=== PATIENT | female | born 1970 | race Caucasian/White ===

== ENCOUNTER 2018-07-25 06:00 | Day surgery (SDC) | payer OTHER ==
[~2018-07-25 06:00] MED LIST: FAMOTIDINE 20MG TABLET PO ONE; MECLIZINE 25 MG TABLET PO ONE; METOCLOPRAMIDE 10 MG TABLET PO ONE
[2018-07-25] MEDS ORDERED: RINGERS SOLUTION,LACTATED 100 ML IV ONE (08:30)
--- NOTE | 2018-07-25 19:18 | Operative Note ---
DATE OF SERVICE: 07/25/2018 PREOPERATIVE DIAGNOSES: 1. HEAVY MENSTRUAL BLEEDING. 2. UTERINE FIBROIDS. 3. PROLONGED BLEEDING. POSTOPERATIVE DIAGNOSES: 1. HEAVY MENSTRUAL BLEEDING. 2. UTERINE FIBROIDS. 3. PROLONGED BLEEDING. 4. STENOTIC CERVIX. PHYSICIAN: MONICA HESS D.O. ANESTHESIA: GENERAL. COMPLICATIONS: NONE. ESTIMATED BLOOD LOSS: MINIMAL. HISTORY: This is a 48-year-old female, who was having periods monthly until the fall of last year. She then went 54 days without a period. She then started a period and that one lasted 23 days. She continues to have prolonged bleeding. She does have a history of and bowel resection. She had an ultrasound , which showed a 4 cm fibroid. Because of her previous surgery, we opted to do a D&C ablation. However, the cervix was noted to be stenotic. I could not pass anything through the cervix. It was difficult with the angle of the cervix, most likely due to the fibroid. PROCEDURE: The patient was prepped for surgery. She was brought back to the Operative Suite. She was sterilely prepped and draped in the dorsal lithotomy position. A weighted speculum was placed in the vaginal vault. A tenaculum was used to grab a portion of the cervix that I could visualize. That was brought up and then I reapplied the tenaculum to a more appropriate position. The cervix was way over to the left side and angulated somewhat down. I could see a linear dimpled-like area that appeared to be the os. I attempted to pass a dilator but that was unsuccessful. I then attempted to try a stat to see if I could gradually open that area. That was unsuccessful. At this point, after multiple attempts, I decided to not try any further. I didn't want to have any issues. At this point, will discuss options after the surgery. The tenaculum was removed. The weighted speculum was removed. There was minimal bleeding. The patient was then awoken from general anesthesia and brought back to the Recovery Room in satisfactory condition. JOB NUMBER: [id number] MTDD
== END 2018-07-25 09:20 | disposition home or self-care (01) ==
LOC: SUR 06:00
PROVIDERS: ATTEND Obstetrics & Gynecology
DX: N92.0 Excessive and frequent menstruation with regular cycle (principal); D25.9 Leiomyoma of uterus, unspecified; R79.1 Abnormal coagulation profile; N88.2 Stricture and stenosis of cervix uteri; K50.90 Crohn's disease, unspecified, without complications
CPT/HCPCS: 81025; J7120